=== PATIENT | female | born 1970 | race Caucasian/White ===

== ENCOUNTER 2018-06-24 12:18 | Emergency (ER) | payer BC ==
[~2018-06-24] VITALS: Ht 170.2 cm; Wt 76.2 kg
[2018-06-24 12:48] LABS: ABSOLUTE NEUTROPHILS 2.5 thou/uL (1.4-8.2); EOSINOPHILS 6.2 % (0.0-3.0); HEMATOCRIT 35.4 % (37.0-47.0); HEMOGLOBIN 12.5 gm/dL (12.0-15.0); LYMPHOCYTES 31.7 % (24.0-44.0); MCHC 35.2 g/dL (28.0-37.0); MONOCYTES 6.3 % (1.0-8.0); PLATELET COUNT 238 thou/uL (150-400); POLYS 54.8 % (36.0-66.0); RBC 4.17 mil/uL (4.20-5.00); RDW 12.7 % (10.5-14.5); WBC 4.5 thou/uL (4.0-11.0)
[2018-06-24 12:57] LABS: ANION GAP 11 mmol/L (7-16); BUN 7 mg/dL (7-18); CALCIUM 9.6 mg/dL (8.5-10.1); CHLORIDE 101 mmol/L (98-107); CO2 28 mmol/L (21-32); CREATININE 0.6 mg/dL (0.6-1.0); GLUCOSE 130 mg/dL (74-106); POTASSIUM 3.2 mmol/L (3.5-5.1); SODIUM 140 mmol/L (136-145)
[2018-06-24 13:00] LABS: APTT 26.4 Seconds (24.5-32.8)
[2018-06-24 13:05] LABS: TROPONIN-I <0.06 ng/mL (<0.06)
[2018-06-24] MEDS ORDERED: XANAX 0.5 MG0.5 MG PO (13:45)
[2018-06-24] MEDS ORDERED: CARVEDILOL12.5 MG PO (13:45)
[2018-06-24] MEDS ORDERED: NORCO 10-325 T1 EACH PO (13:46)
[2018-06-24] MEDS ORDERED: LISINOPRIL10 MG PO (13:46)
[2018-06-24] MEDS ORDERED: AMLODIPINE BESY10 MG PO (13:47)
[2018-06-24] MEDS ORDERED: LIPITOR40 MG PO (13:47)
[2018-06-24] MEDS ORDERED: IBUPROFEN 800800 M1 PO (13:49)
[2018-06-24] MEDS ORDERED: ADDERALL 10 MG10 MG PO (13:49)
[2018-06-24 15:18] VITALS: BP 179/96
--- NOTE | 2018-06-24 16:58 | EKG ---
[place] [address] [address] [facility] [place] [address] ELECTROCARDIOGRAM REPORT Name: ANGEL LUIS BRADLEY [id number] ������������������ Admission: 06/24/18 ������������������ Attend Phys: Discharge: 06/24/18 ������������������ Date of : 66 Report #: [id number] ����������������������������������������������������������������� [id number] THIS REPORT FOR: //name// [facility] ED Test Date: 2018-06-24 Test Time: 12:30:57 Pat Name: ANGEL LUIS BRADLEY Department: Room: Gender: F Vice President Tax: kf : 1970 Requested By: Barbara Vaughn Order Number: [id number] MD: Roland Quintanilla Measurements Intervals [place] Rate: 75 P: 43 [place]: 153 QRS: -7 QRSD: 99 T: 21 QT: 376 QTc: 420 Interpretive Statements Sinus rhythm Normal tracing No previous ECG available for comparison Electronically Signed On 06-24-2018 16:58:20 CDT by Roland Quintanilla [email or web address] ��������������������������������������������� <ELECTRONICALLY SIGNED> ���������������������������������������� By: Roland Quintanilla MD, [facility] ��������������������������������������������� 06/24/18 1658 1230 1230 Roland Quintanilla MD, FACC /EPI
[2018-06-27] MEDS ORDERED: BYSTOLIC20 MG PO (08:04)
[2018-06-27] MEDS ORDERED: CLONIDINE0.1 PO (08:05)
[2018-06-27] MEDS ORDERED: EDARBYCLOR 40-1 EAC1 PO (08:05)
[2018-06-27] MEDS ORDERED: HYDROCHLOROTH12.5 M1 PO (08:06)
[2018-06-27] MEDS ORDERED: PLAVIX 75 MG TA75 M1 PO (11:46)
[2018-06-27] MEDS ORDERED: ASPIR 8181 MG PO (11:47)
== END 2018-06-24 15:45 | disposition home or self-care (01) ==
LOC: ER 12:18
PROVIDERS: Emergency Medicine
DX: I10 Essential (primary) hypertension (principal); E78.00 Pure hypercholesterolemia, unspecified; Z88.2 Allergy status to sulfonamides

== ENCOUNTER → 2018-06-27 | Outpatient (CLI) | payer BC, OTHER ==
[~2018-06-27] VITALS: Ht 170.2 cm; Wt 76.2 kg
[~2018-06-27] MED LIST: ADDERALL 10 MG10 MG PO; AMLODIPINE BESY10 MG PO; ASPIR 8181 MG PO; BYSTOLIC20 MG PO; CARVEDILOL12.5 MG PO; CLONIDINE0.1 PO; EDARBYCLOR 40-1 EAC1 PO; HYDROCHLOROTH12.5 M1 PO; IBUPROFEN 800800 M1 PO; LIPITOR40 MG PO; LISINOPRIL10 MG PO; NORCO 10-325 T1 EACH PO; PLAVIX 75 MG TA75 M1 PO; XANAX 0.5 MG0.5 MG PO
[2018-06-27 07:23] VITALS: BP 159/87
[2018-06-27 12:00] VITALS: BP 135/65
== END | disposition home or self-care (01) ==
LOC: SPEC 06:34
DX: I73.89 Other specified peripheral vascular diseases (principal); I70.1 Atherosclerosis of renal artery; I77.3 Arterial fibromuscular dysplasia; I10 Essential (primary) hypertension; E78.5 Hyperlipidemia, unspecified; F41.9 Anxiety disorder, unspecified; Z90.49 Acquired absence of other specified parts of digestive tract; Z98.890 Other specified postprocedural states; Z82.49 Family history of ischemic heart disease and other diseases of the circulatory system; Z87.891 Personal history of nicotine dependence; Z88.2 Allergy status to sulfonamides; Z79.82 Long term (current) use of aspirin; Z79.899 Other long term (current) drug therapy

== ENCOUNTER 2019-09-04 10:18 | Inpatient (IN) | payer BC, OTHER ==
[~2019-09-04] VITALS: Ht 170.2 cm; Wt 74.4 kg
[2019-09-04 10:18] VITALS: BP 218/87
[2019-09-04 10:50] LABS: URINE BILIRUBIN NEGATIVE (Negative); URINE BLOOD NEGATIVE (Negative); URINE CLARITY CLEAR; URINE COLOR YELLOW; URINE GLUCOSE-RANDOM* NEGATIVE (Negative); URINE KETONES NEGATIVE (Negative); URINE LEUKOCYTES-REFLEX NEGATIVE (Negative); URINE NITRITE-REFLEX NEGATIVE (Negative); URINE PROTEIN (DIPSTICK) NEGATIVE (Negative); URINE UROBILINOGEN 0.2 E.U./dl (0.2-1.0)
[2019-09-04 10:52] LABS: ABSOLUTE NEUTROPHILS 3.5 thou/uL (1.4-8.2); EOSINOPHILS 13.1 % (0.0-3.0); HEMATOCRIT 38.5 % (37.0-47.0); HEMOGLOBIN 13.1 gm/dL (12.0-15.0); LYMPHOCYTES 23.2 % (24.0-44.0); MCH 30.1 pg (26.0-34.0); MCV 88.7 fL (80.0-100.0); PLATELET COUNT 257 thou/uL (150-400); POLYS 56.7 % (36.0-66.0); RBC 4.34 mil/uL (4.20-5.00); RDW 13.4 % (10.5-14.5); WBC 6.2 thou/uL (4.0-11.0)
[2019-09-04 11:04] LABS: CALCIUM 9.4 mg/dL (8.5-10.1); CREATININE 0.8 mg/dL (0.6-1.0); POTASSIUM 3.4 mmol/L (3.5-5.1)
[2019-09-04 11:10] LABS: ALBUMIN 4.1 g/dL (3.4-5.0); TOTAL BILIRUBIN 0.3 mg/dL (0.2-1.0); TOTAL PROTEIN 7.3 g/dL (6.4-8.2)
[2019-09-04 13:09] VITALS: BP 167/79
[2019-09-04 14:37] VITALS: BP 159/92
[2019-09-04 16:09] VITALS: BP 142/68
[2019-09-04 18:54] VITALS: BP 150/84
[2019-09-04 20:30] VITALS: BP 145/83
--- NOTE | 2019-09-04 21:13 | NUR ---
PT. ARRIVED AT FLOOR CLOSE TO 1600; AOX4; ABLE TO AMBULATE FROM STRECHER TO BED; ABLE TO AMBULATE FROM BED TO RESTHROOM; C/O ABDOMINAL PAIN; PRN PAIN MEDICATION NOT DUE; PHYSICIAN NOTIFIED; C/O NAUSEA; NO PRN MEDICATION; PHYSICIAN PAGED; ORDERS RECEIVED; C/O ITCHING AFTER GETTING MORPHINE IN ER; PHYSICIAN NOTIFIED; ORDERS RECEIVED; C/O ITCHING & HIVES DEVELOPED OVER THIGHS; PHYSICINA PAGED X2; NO CALL BACK; MICHELE DESIGN INSERTER CALLED; ORDERS RECEIVED; MEDICATION GIVEN; MONITORING; PRN PAIN MEDICATION GIVEN; PER PT. REQUEST 50 MCG FENTANYL GIVEN; RE-ASSESSMENT PT. C/O PAIN; CALMER AT BED SIDE SHIFT CHANGED; ASSESSMENT CHARGED; FOLLOWING POC; PASSED ON REPORT;
[2019-09-05] VITALS: BP 143/69
[2019-09-05 03:40] VITALS: BP 151/81
[2019-09-05 04:26] LABS: HEMATOCRIT 39.5 % (37.0-47.0); HEMOGLOBIN 13.3 gm/dL (12.0-15.0); MCH 29.9 pg (26.0-34.0); MCHC 33.6 g/dL (28.0-37.0); RBC 4.43 mil/uL (4.20-5.00); RDW 13.3 % (10.5-14.5); WBC 4.5 thou/uL (4.0-11.0)
--- NOTE | 2019-09-05 04:48 | NUR ---
SLEPT PART OF SHIFT. CONTINUED COMPLAINTS OF PAIN ON RIGHT FLANK WITH NOTED RELIEF PAST IV PAIN MEDS. WORKING ON GOALS AND PLAN OF CARE FOR NOC. NOT PROGRESSING TOWARDS DISCHARE GOALS AT THIS TIME. UP AD NEMO TO ROOM WITH STEADY GAIT. CONTINUE TO ASSES CLOSELY.
[2019-09-05 04:50] LABS: CALCIUM 9.8 mg/dL (8.5-10.1); CREATININE 0.8 mg/dL (0.6-1.0); POTASSIUM 4.2 mmol/L (3.5-5.1)
[2019-09-05 07:34] VITALS: BP 160/72
--- NOTE | 2019-09-05 10:09 | EKG ---
[facility] [place] [address] ELECTROCARDIOGRAM REPORT Name: ANGEL LUIS BRADLEY Room #: 212- ADM IN M.R.#: [id number] Admission: 09/04/19 Attend Phys: Brenton Lugo MD Discharge: Date of : 66 Report #: [id number] THIS REPORT FOR: cc: Nicolas Guerra Gregory DO Park,Dustin Weber MD ~ THIS REPORT FOR: //name// [facility] ED Test Date: 2019-09-04 Test Time: 10:38:24 Pat Name: ANGEL LUIS BRADLEY Department: Room: [facility] Gender: F Composition Floor Setter: : 1970 Requested By: Dennis Kramer Order Number: [id number] MD: Dustin Guajardo Measurements Intervals [place] Rate: 72 P: 51 MS: 139 QRS: 1 QRSD: 96 T: 14 QT: 385 QTc: 422 Interpretive Statements Sinus rhythm Probable left atrial enlargement Left ventricular hypertrophy Nonspecific ST segment abnormalities Compared to ECG 06/24/2018 12:30:57 Left ventricular hypertrophy now present Electronically Signed On 09-05-2019 10:08:53 CDT by Dustin Guajardo [email or web address] <ELECTRONICALLY SIGNED> By: Dustin Guajardo MD 09/05/19 1008 1038 1038 Dustin Guajardo MD /EPI
--- NOTE | 2019-09-05 10:28 | NUR ---
PT ASSESSED, VSS, REVIEWED POC WITH PT, SHE VERBALIZED UNDERSTANDING, AWARE OF WHEN SHE CAN HAVE NEXT PAIN MED, PT AMBULATES WITH STEADY GAIT, AWARE THAT WE ARE TRYING TO KEEP STRICT I & O, WILL USE HAT IN TOILET AND KEEP TRACK OF WHAT SHE DRINKS. CALL LIGHT AT SIDE, WILL MONITOR
[2019-09-05 11:27] VITALS: BP 136/70
--- NOTE | 2019-09-05 14:28 | 2DMMODE ---
[facility] [place] [address] 2 D/M-MODE ECHOCARDIOGRAM Name: ANGEL LUIS BRADLEY Room #: 212-P ADM IN M.R.#: [id number] Admission: 09/04/19 Attend Phys: Brenton Lugo MD Discharge: Date of : 66 Report #: [id number] THIS REPORT FOR: cc: Nicolas Guerra Gregory DO Park,Dustin Weber MD ~ APPROVED REPORT Study performed: 09/05/2019 09:47:54 EXAM: Comprehensive 2D, Doppler, and color-flow Echocardiogram Patient Location: In-Patient Room #: 212 Status: routine BSA: 1.86 HR: 76 bpm Rhythm: NSR Other Information Study Quality: Adequate Indications Hypertension/HDD 2D Dimensions RVDd: 39.60 mm IVSd: 16.30 (7-11mm) LVOT Diam: 21.32 (18-24mm) LVDd: 39.44 mm PWd: 14.06 (7-11mm) Ascending Ao: 33.46 (22-36mm) LVDs: 17.84 (25-40mm) Aortic Root: 32.27 mm LV Single Plane 4CH: 78.33 % Volumes Left Atrial Volume (Systole) Single Plane 4CH: 21.53 mL Single Plane 2CH: 25.26 mL Aortic Valve AoV Peak Ceferino.: 1.82 m/s AO Peak Gr.: 13.21 mmHg LVOT Max P.09 mmHg AO Mean Gr.: 6.32 mmHg LVOT Mean P.97 mmHg AO V2 Mean: 1.16 m/s LVOT Max V: 1.67 m/s AO V2 VTI: 44.20 cm LVOT Mean V: 1.12 m/s [facility] [address] [place] [address] 2 D/M-MODE ECHOCARDIOGRAM Name: ANGEL LUIS BRADLEY Room #: 212-P [facility] IN ..#: [id number] Admission: 09/04/19 Attend Phys: Brenton Lugo MD Discharge: Date of : 66 Report #: [id number] BRIELLE (VTI): 3.04 cm2 LVOT V1 VTI: 37.62 cm BRIELLE Vmax: 3.27 cm2 SV (LVOT): 134.29 mL Mitral Valve E/A Ratio: 1.0 MV Decel. Time: 293.25 ms MV E Max Ceferino.: 0.95 m/s MV A Ceferino.: 0.96 m/s MV PHT: 85.04 ms Pulmonary Valve PV Peak Ceferino.: 1.01 m/s PV Peak Gr.: 4.06 mmHg Pulmonary Vein P Vein S: 0.86 m/s P Vein A: 0.43 m/s P Vein D: 0.41 m/s P Vein A Dur.: 145.3 msec P Vein S/D Ratio: 2.10 Tricuspid Valve TR Peak Ceferino.: 2.62 m/s TR Peak Gr.: 27.45 mmHg Left Ventricle The left ventricle is normal size. Mild concentric left ventricular hypertrophy. The left ventricular systolic function is normal. The left ventricular ejection fraction is within the normal range. LVEF is 65%. Right Ventricle The right ventricle is normal size. The right ventricular systolic function is normal. Atria The left atrium size is normal. The right atrium size is normal. Aortic Valve The aortic valve is normal in structure. No aortic regurgitation is present. There is no aortic valvular stenosis. Mitral Valve The mitral valve is normal in structure. Trace to mild mitral regurgitation. No evidence of mitral valve stenosis. Tricuspid Valve [facility] [address] [place] [address] 2 D/M-MODE ECHOCARDIOGRAM Name: ANGEL LUIS BRADLEY Room #: 212-P [facility] IN .R.#: [id number] Admission: 09/04/19 Attend Phys: Brenton Lugo MD Discharge: Date of : 66 Report #: [id number] The tricuspid valve is normal in structure. There is no tricuspid valve regurgitation noted. Pulmonic Valve The pulmonary valve is normal in structure. There is no pulmonic valvular regurgitation. Great Vessels The aortic root is normal in size. IVC is normal in size and collapses >50% with inspiration. Pericardium There is no pericardial effusion. <Conclusion> The left ventricle is normal size. Mild concentric left ventricular hypertrophy. The left ventricular systolic function is normal. The right ventricle is normal size. The left atrium size is normal. The aortic valve is normal in structure. Trace to mild mitral regurgitation. There is no tricuspid valve regurgitation noted. <ELECTRONICALLY SIGNED> By: Dustin Guajardo MD 09/05/19 1427 1427 1427 Dustin Guajardo MD /INF
[2019-09-05 15:17] VITALS: BP 145/73
--- NOTE | 2019-09-05 17:46 | NUR ---
CARE TAKEN OVER FROM CHAO RN @ 1300. PT ALERT AND ORIENTED. RECEIVED PRN PAIN MED FOR ABD PAIN. REPORT HAVING NAUSEA X3. NAUSEA MED GIVEN. SR ON TELE. WILL CONTINUE TO MONITOR.
[2019-09-05 19:13] VITALS: BP 162/79
[2019-09-06] VITALS: BP 121/64
--- NOTE | 2019-09-06 04:22 | NUR ---
SLEPT MOST OF SHIFT. UP AD NEMO IN ROOM WITH STEADY GAIT. PAIN MEDICATIONS GIVEN REQUESTED PRN FOR RIGHT FLANK PAIN WITH NOTED RELIEF. PAIN MORE CONTROLLED TONIGHT. WORKING ON GOALS AND PLAN OF CARE FOR NOC. NOT PROGRESSING TOWARDS DISCHARGE GOALS AT THIS TIME. PLAN FOR COLONOSCOPY ON SATURDAY. CONTINUE TO ASSES.
--- NOTE | 2019-09-06 04:25 | NUR ---
RASH REMAINS VISIBLE TONIGHT ON BACK, BETWEEN LEGS, ABDOMAN AND ARMS. IS LESS RED THAT PREVIOUS NOC. BENADRYL GIVEN X1 THIS SHIFT.
[2019-09-06 04:30] VITALS: BP 128/66
[2019-09-06 12:00] VITALS: BP 158/86
--- NOTE | 2019-09-06 16:42 | NUR ---
PT ALERT AND ORIENTED. VSS. PRN PAIN MED AND NAUSEA MED GIVEN. NPO FOR EGD AND COLONOSCOPY IN AM. COLONOSCOPY PREP STARTED. WILL CONTINUE TO MONITOR.
[2019-09-06 17:00] VITALS: BP 146/89
[2019-09-06 19:50] VITALS: BP 162/83
[2019-09-06 23:28] VITALS: BP 111/67
[2019-09-07 03:55] VITALS: BP 146/90
[2019-09-07 04:49] LABS: HEMATOCRIT 39.7 % (37.0-47.0); HEMOGLOBIN 13.3 gm/dL (12.0-15.0); MCH 29.9 pg (26.0-34.0); MCHC 33.5 g/dL (28.0-37.0); MCV 89.2 fL (80.0-100.0); RBC 4.45 mil/uL (4.20-5.00); RDW 13.1 % (10.5-14.5); WBC 5.8 thou/uL (4.0-11.0)
[2019-09-07 05:01] LABS: CALCIUM 9.2 mg/dL (8.5-10.1); CREATININE 0.8 mg/dL (0.6-1.0)
--- NOTE | 2019-09-07 05:16 | NUR ---
SLEPT MORE THIS SHIFT THAN LAST NOC. WORKING ON GOALS AND PLAN OF CARE FOR NOC. LAST STOOL AT 0200 WAS LIGHT YELLOW AND CLEAR. NOT PROGRESSING TOWARDS DISCHARGE GOALS AT THIS TIME. UP AD NEMO WITH STEADY GAIT. CONTINUE TO ASSES CLOSELY.
[2019-09-07 08:00] VITALS: BP 134/82
[2019-09-07 14:00] VITALS: BP 140/76
[2019-09-07] MEDS ORDERED: CHLORTHALIDONE25 MG PO (14:47)
[2019-09-07] MEDS ORDERED: BENICAR20 MG PO (14:47)
[2019-09-07] MEDS ORDERED: PANTOPRAZOLE SO40 M1 PO (14:47)
[2019-09-07 14:56] VITALS: BP 140/76
--- NOTE | 2019-09-07 15:16 | NUR ---
Nutrition: Pt admitted with abdominal pain, elevated BP and seen due to high risk screen for weight loss, poor intake. Unable to locate pt x 2 today. Noted discharge orders in place. S/P EGD/colonoscopy this am with dilation, grade B esophagitis, gastritis and mild duodenitis noted. Protonix started. Pt now on regular diet with prior intake 35-75% of meals. Current weights showing a 4 # loss from weight last year if accurate, not significant. RD will attempt re-visit with pt on 09/07 if not discharged.
--- NOTE | 2019-09-07 16:43 | NUR ---
ASSESSMENT CHARTED. PT ALERT AND ORIENTED. VSS. HAD EGD AND COLONOSCOPY THIS AM. PRN PAIN MED GIVEN WITH PARTIAL RELIEF. ORDERS GIVEN TO DISCHARGE PT TO HOME. DISCHARGE INSTRUCTIONS GIVEN TO PT. PT VERBERLISED UNDERSTANDING.
--- NOTE | 2019-09-09 07:09 | PATH ---
[facility] [place] [address] PATHOLOGY RPT PROCEDURE Name: AMA BRADLEY Room #: 212-P DIS IN M.R.#: [id number] Admission: 09/04/19 Date of : 66 Discharge: 09/07/19 Report #: [id number] Path Case #: [id number] [facility] Accession Number: [id number] . 01 Material submitted: . PART A: duodenum - BX OF DUODENUM PART B: stomach - BX OF GASTRITIS PART C: esophagus - BX OF ESOPHAGUS PART D: cecum - POLYP AT CECUM . 01 Clinical history: . Hypertension, flank pain, renal artery stenosis . 02 Diagnosis: A. Small bowel mucosa, duodenum, endoscopic biopsy: - Mild nonspecific duodenitis associated with focal fundic-type metaplasia, compatible with peptic duodenitis. - Focal mild villous blunting identified in association with peptic duodenitis. - Negative for increase in intraepithelial lymphocytes. . B. Gastric mucosa, gastritis R/O H. pylori, endoscopic biopsy: - Mild chronic active gastritis associated with features of reactive gastropathy. - Negative for intestinal metaplasia or atrophy. - Negative for Helicobacter pylori (properly controlled immunohistochemical stain performed). . C. Gastroesophageal mucosa, esphagus R/O Quan's, endoscopic biopsy: - Gastric fundic-type mucosa with no definite intestinal metaplasia. - Squamous mucosa with mild esophagitis. - Negative for dysplasia. . D Polyp, cecum, endoscopic biopsy: - Tubular adenoma. - Negative for high-grade dysplasia. (IUV:karan; 09/08/2019) S 09/08/2019 1514 Local . 02 Electronically signed: . Wen Tolbert MD, Pathologist NPI- [id number] . 01 Gross description: . A. The specimen is received in formalin labeled "Ama Bradley BX of duodenum rule out sprue" and consists of multiple fragments of babcock tissue measuring 1.2 x 0.6 x 0.2 cm [place] [address] PATHOLOGY RPT PROCEDURE Name: AMA BRADLEY Room #: 212-P [facility] IN .R.#: [id number] Admission: 09/04/19 Date of : 66 Discharge: 09/07/19 Report #: [id number] Path Case #: [id number] submitted in A1. . B. The specimen is received in formalin labeled "Daron, Ama, BX of gastritis rule out H. pylori" and consists of multiple fragments of pink-babcock tissue measuring 0.8 x 0.3 x 0.2 cm in aggregate which are entirely submitted in B1. . C. The specimen is received in formalin labeled "Ama Bradley, BX of esophagus rule out Quan's" and consists of a fragment of babcock brown tissue measuring 0.3 x 0.2 x 0.2 cm which is entirely submitted in C1. . D. The specimen is received in formalin labeled "Ama Bradley, polyp at cecum" and consists of 2 fragments of babcock tissue measuring 0.6 x 0.2 x 0.2 cm in aggregate which are entirely submitted in D1. (DESIRE; 09/07/2019) JFQ/ZACARIAS 09/07/2019 1907 Local . 02 Pathologist provided ICD-10: K29.80, K29.50, K20.9, D12.0 . 02 CPT . 297682, 255074, 781390, 721172, B91241 Specimen Comment: A courtesy copy of this report has been sent to [phone], [phone] Specimen Comment: [phone], Specimen Comment: Report sent to ,DR COLES / DR SONG Specimen Comment: Report sent to Performed at: [address], [place], [place] [id number] MD Melecio Phan MD Phone: [phone] Performed at: [address] [id number] MD Wen Tolbert MD Phone: [phone]
--- NOTE | 2019-09-09 15:06 | P ---
[facility] [place] [address] PROCEDURE REPORT Name: ANGEL LUIS BRADLEY Room #: 212-P [facility] IN M.R.#: [id number] Admission: 09/04/19 Attend Phys: Brenton Lugo MD Discharge: 09/07/19 Date of : 66 Report #: [id number] THIS REPORT FOR: cc: Nicolas Guerra Gregory DO McElhinney, Christian C. MD ~ CC: Brenton Guerra DATE OF SERVICE: 09/07/2019 PROCEDURE PERFORMED: Colonoscopy with biopsies. HISTORY OF PRESENT ILLNESS: The patient is a 49-year-old female with abdominal pain, small amount of bright red blood per rectum recently. A CT scan of the abdomen and pelvis on 09/04/2019 showed fatty liver changes, mild bile duct dilation, history of cholecystectomy noted. No obvious stones were seen. Thickened endometrial canal was noted. 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 The patient has a previous history of left renal stent placement. She therefore underwent a CT arteriogram on 09/05/2019. Celiac SMA and FRANSISCA were widely patent. The patient does report mild dysphagia and heartburn at times, also episode of nausea, vomiting with some bright red blood recently. No previous history of upper endoscopy. She states she had a colonoscopy in the last year. No family history of colon cancer. The plan was for EGD and colonoscopy today. DESCRIPTION OF PROCEDURE: The risks and benefits of the procedure were explained to the patient, those risks including but not limited to bleeding, perforation and the risk of sedation. She understood these risks and gave informed consent. Sedation was given using propofol per anesthesia. Next, a digital rectal exam was initially performed, which was normal. Next, using a standard Olympus colonoscope, the scope was placed in the patient's anus and advanced under direct vision to the cecum. The overall prep was good. In the cecum, there was a 3 mm sessile polyp. This was removed with cold forceps, otherwise normal. The ileocecal valve was normal. The terminal ileum was intubated and normal in appearance. Ascending, transverse and descending colon were normal. Multiple small diverticuli were noted in the sigmoid colon, no evidence of inflammation, no evidence of bleeding. The rectal mucosa was normal. On retroflexion, small nonbleeding internal hemorrhoids were noted. The scope was then withdrawn and the procedure terminated. The patient tolerated the procedure well. IMPRESSION: 1. Small colonic polyp. 2. Sigmoid diverticulosis, no signs of bleeding. [address] [address] PROCEDURE REPORT Name: ANGEL LUIS BRADLEY Room #: 212-P [facility] IN M.R.#: [id number] Admission: 09/04/19 Attend Phys: Brenton Lugo MD Discharge: 09/07/19 Date of : 66 Report #: [id number] 3. Small internal hemorrhoids, nonbleeding. 4. Otherwise, normal colonoscopy. RECOMMENDATIONS: 1. Await biopsy results. 2. If polyp is hyperplastic, repeat in 10 years; if adenomatous polyp, repeat in 5 years. 3. Etiology of abdominal pain may be secondary to gastritis and esophagitis. The patient is now on PPI therapy. Would continue to observe. She did, however, have a mild elevation in her lipase. We will repeat at this time. Pancreas was normal on recent CT. Thank you for allowing me to participate in her care. <ELECTRONICALLY SIGNED> By: Raheel Sung MD 09/09/19 1506 1257 1404 Raheel Sung MD /nt
--- NOTE | 2019-09-09 15:06 | P ---
[facility] [place] [address] PROCEDURE REPORT Name: ANGEL LUIS BRADLEY Room #: 212-P [facility] IN M.R.#: [id number] Admission: 09/04/19 Attend Phys: Brenton Lugo MD Discharge: 09/07/19 Date of : 66 Report #: [id number] THIS REPORT FOR: cc: Nicolas Guerra,Raheel Su MD ~ CC: Brenton Guerra DATE OF SERVICE: 09/07/2019 PROCEDURE PERFORMED: Upper endoscopy with biopsies and esophageal dilation. HISTORY OF PRESENT ILLNESS: The patient is a 49-year-old female who was admitted with abdominal pain. This is primarily midepigastric and periumbilical. She describes it as constant. She does report mild heartburn at times intermittent nausea and vomiting, one episode with a small amount of bright red blood recently. Also, is having hematochezia. She has had a previous history of a left renal stent. A CT scan of the abdomen and pelvis was performed, suggesting a possible stenosis of the mesentery. Therefore, she underwent a CT arteriogram. This showed celiac and SMA and FRANSISCA widely patent. Plan is for EGD and colonoscopy today. She does report mild dysphagia at times. DESCRIPTION OF PROCEDURE: The risks and benefits of the procedure were explained to the patient, those risks including but not limited to bleeding, perforation and the risk of sedation. She understood these risks and gave informed consent. Sedation was given using propofol per anesthesia. Next, using a standard Olympus upper endoscope, the scope was placed in the patient's mouth and advanced under direct vision through the esophagus, stomach and into the second portion of the duodenum. The upper and mid esophagus was normal in appearance. In the distal esophagus, grade B erosive esophagitis was noted. A possible short segment of Quan's was also noted. Biopsies were obtained. Overall, there was a mild diffuse gastritis primarily in the antrum. No evidence of ulcerations or erosions, no bleeding. Biopsies were obtained to rule out H. pylori. The pylorus was normal and patent. Mild duodenitis was noted in the duodenal bulb. The first and second portion of the duodenum were normal. Biopsies were obtained to rule out the possibility of celiac sprue. The scope was then brought back up into the patient's stomach and a Savary guidewire was inserted through the scope, leaving the guidewire in place as the scope was then withdrawn. Next, a 48-Senegalese Savary dilation of the esophagus was performed without difficulty. The wire and dilator were removed. The scope was reintroduced into the patient's stomach. There was no evidence of mucosal tear after dilation. The scope was then withdrawn and the procedure terminated. The patient tolerated the procedure well. [address] [address] PROCEDURE REPORT Name: ANGEL LUIS BRADLEY Room #: 212-P [facility] IN M.R.#: [id number] Admission: 09/04/19 Attend Phys: Brenton Lugo MD Discharge: 09/07/19 Date of : 66 Report #: [id number] IMPRESSION: 1. Grade B erosive esophagitis. 2. Mild gastritis. 3. Mild duodenitis. 4. Otherwise, normal upper endoscopy. RECOMMENDATIONS: 1. Await biopsy results. 2. Recommend daily PPI therapy. 3. Observe patient post-dilation. 4. We will proceed with colonoscopy next today. Thank you for allowing me to participate in her care. <ELECTRONICALLY SIGNED> By: Raheel Sung MD 09/09/19 1506 1224 1348 Raheel Sung MD /nt
== END 2019-09-07 17:02 | disposition home or self-care (01) | DRG 394 ==
LOC: ER 10:18 → 2N 13:03 → EROBS 13:03 → 2N 13:04 → EROBS 14:52 → 2N 14:52
PROVIDERS: Emergency Medicine; ADMIT Hospitalist; ATTEND Hospitalist
DX: D12.0 Benign neoplasm of cecum (principal); K55.1 Chronic vascular disorders of intestine; K29.70 Gastritis, unspecified, without bleeding; K29.80 Duodenitis without bleeding; I16.0 Hypertensive urgency; I10 Essential (primary) hypertension; E78.5 Hyperlipidemia, unspecified; K64.8 Other hemorrhoids; I73.9 Peripheral vascular disease, unspecified; K76.0 Fatty (change of) liver, not elsewhere classified; R13.10 Dysphagia, unspecified; K21.0 Gastro-esophageal reflux disease with esophagitis; K57.30 Diverticulosis of large intestine without perforation or abscess without bleeding; Z98.1 Arthrodesis status; Z79.891 Long term (current) use of opiate analgesic; I25.2 Old myocardial infarction; Z90.49 Acquired absence of other specified parts of digestive tract; Z90.89 Acquired absence of other organs; Z79.82 Long term (current) use of aspirin; Z79.899 Other long term (current) drug therapy; Z88.2 Allergy status to sulfonamides; Z87.891 Personal history of nicotine dependence; Z88.5 Allergy status to narcotic agent
CPT/HCPCS: 10081; 10797; 62110; 62900; 70005

== ENCOUNTER → 2019-09-22 | Outpatient (CLI) | payer BC, OTHER ==
[~2019-09-22] MED LIST changes: +BENICAR20 MG PO; +CHLORTHALIDONE25 MG PO; +PANTOPRAZOLE SO40 M1 PO
== END ==
LOC: SJCVCIMAG 15:07
PROVIDERS: ATTEND Internal Medicine Cardiovascular Disease
DX: K55.1 Chronic vascular disorders of intestine (principal); I10 Essential (primary) hypertension; E78.00 Pure hypercholesterolemia, unspecified; I70.1 Atherosclerosis of renal artery; R10.84 Generalized abdominal pain

== ENCOUNTER 2019-10-05 11:27 | Outpatient (CLI) | payer BC, OTHER ==
[2019-10-05] VITALS (7 sets, daily range): BP systolic 96–126; BP diastolic 59–76
[~2019-10-05] VITALS: Ht 170.2 cm; Wt 70.3 kg
[2019-10-05 12:20] LABS: HEMATOCRIT 39.7 % (37.0-47.0); HEMOGLOBIN 13.5 gm/dL (12.0-15.0); MCHC 34.2 g/dL (28.0-37.0); MCV 87.9 fL (80.0-100.0); RBC 4.51 mil/uL (4.20-5.00); RDW 12.6 % (10.5-14.5)
[2019-10-05 12:31] LABS: CALCIUM 9.8 mg/dL (8.5-10.1); CREATININE 0.7 mg/dL (0.6-1.0); POTASSIUM 3.3 mmol/L (3.5-5.1)
--- NOTE | 2019-10-05 19:03 | NUR ---
PT ADMITED FROM ACADEMIC ADMINISTRATOR. RIGHT GROIN INCISION C/D/I. VSS. PRN PAIN MED GIVEN WITH PARTIAL RELIEF. ORDERS GIVEN TO DISCHARGE PT AFTER BED REST. DISCHARGE INSTRUCTIONS GIVEN TO PT. PT VERBERLISED UNDERSTANDING. PT LEFT THE FACILTY WITH THE . RIGHT GROIN C/D/I. NO HEMATOMA NOTED.
== END 2019-10-05 19:15 | disposition home or self-care (01) ==
LOC: CATH 11:27 → 2N 16:00 → CATH 19:15
PROVIDERS: ATTEND Nuclear Medicine Nuclear Cardiology
DX: K55.1 Chronic vascular disorders of intestine (principal); K55.059 Acute (reversible) ischemia of intestine, part and extent unspecified; I70.1 Atherosclerosis of renal artery; I73.9 Peripheral vascular disease, unspecified; I10 Essential (primary) hypertension; E78.5 Hyperlipidemia, unspecified; I48.91 Unspecified atrial fibrillation; Z90.49 Acquired absence of other specified parts of digestive tract; Z98.890 Other specified postprocedural states; Z79.891 Long term (current) use of opiate analgesic; Z79.899 Other long term (current) drug therapy; Z88.2 Allergy status to sulfonamides; Z88.8 Allergy status to other drugs, medicaments and biological substances
CPT/HCPCS: 10081

== ENCOUNTER → 2019-10-08 | Outpatient (CLI) | payer BC, OTHER | LOC: SJCVCIMAG 14:57 | PROVIDERS: ATTEND Nuclear Medicine Nuclear Cardiology | DX: R10.30 Lower abdominal pain, unspecified (principal); R19.09 Other intra-abdominal and pelvic swelling, mass and lump ==

== ENCOUNTER 2020-01-13 19:45 | Emergency (ER) | payer BC, OTHER ==
[~2020-01-13] VITALS: Ht 170.2 cm; Wt 72.6 kg
--- NOTE | ~2020-01-13 | EKG ---
[facility] [place] [address] ELECTROCARDIOGRAM REPORT Name: ANGEL LUIS BRADLEY Room #: PRE [facility]..#: [id number] Admission: Attend Phys: Discharge: Date of : 66 Report #: [id number] THIS REPORT FOR: cc: Nicolas Guerra Gregory DO Epiphany, Epiphany MD ~ THIS REPORT FOR: //name// [facility] ED Test Date: 2020-01-13 Test Time: 19:53:15 Pat Name: ANGEL LUIS BRADLEY Department: Room: Gender: F Clay Carman: GISSELL : 1970 Requested By: Thanh Porter Order Number: [id number] MD: Measurements Intervals [place] Rate: 84 P: 56 TN: 172 QRS: 26 QRSD: 101 T: 38 QT: 381 QTc: 451 Interpretive Statements Sinus rhythm Probable left atrial enlargement Minimal ST depression, anterolateral leads Baseline wander in lead(s) III,V1,V2,V3,V4,V5,V6 Compared to ECG 09/04/2019 10:38:24 ST (T wave) deviation now present Left ventricular hypertrophy no longer present [email or web address] By: 52 52 Epiphany Epiphany, [place] /EPI
[2020-01-13 20:13] LABS: ABSOLUTE NEUTROPHILS 4.6 thou/uL (1.4-8.2); BASOPHILS 0.6 % (0.0-2.0); HEMATOCRIT 35.4 % (37.0-47.0); MCH 30.2 pg (26.0-34.0); MCV 88.8 fL (80.0-100.0); MONOCYTES 1.9 % (1.0-8.0); PLATELET COUNT 325 thou/uL (150-400); POLYS 87.5 % (36.0-66.0); RBC 3.98 mil/uL (4.20-5.00); RDW 12.9 % (10.5-14.5); WBC 5.3 thou/uL (4.0-11.0)
[2020-01-13 20:18] LABS: ANION GAP 15 mmol/L (7-16); BUN 9 mg/dL (7-18); CALCIUM 9.9 mg/dL (8.5-10.1); CHLORIDE 98 mmol/L (98-107); CO2 24 mmol/L (21-32); CREATININE 0.7 mg/dL (0.6-1.0); GLUCOSE 157 mg/dL (74-106); POTASSIUM 3.4 mmol/L (3.5-5.1); SODIUM 137 mmol/L (136-145)
[2020-01-13 20:28] LABS: ALBUMIN 4.3 g/dL (3.4-5.0); SGOT 13 U/L (15-37); SGPT 25 U/L (30-65); TOTAL BILIRUBIN 0.1 mg/dL (0.2-1.0); TOTAL PROTEIN 7.9 g/dL (6.4-8.2); TROPONIN-I <0.06 ng/mL (<0.06)
[2020-01-13 21:33] VITALS: BP 159/94
[2020-01-13 21:36] LABS: URINE BILIRUBIN NEGATIVE (Negative); URINE BLOOD 1+ (Negative); URINE CLARITY CLEAR; URINE COLOR YELLOW; URINE GLUCOSE-RANDOM* NEGATIVE (Negative); URINE KETONES NEGATIVE (Negative); URINE NITRITE-REFLEX NEGATIVE (Negative); URINE PROTEIN (DIPSTICK) NEGATIVE (Negative); URINE SPECIFIC GRAVITY 1.025 (1.005-1.035); URINE UROBILINOGEN 0.2 E.U./dl (0.2-1.0)
[2020-01-13 21:45] LABS: URINE LEUKOCYTES-REFLEX 1+ (Negative)
[2020-01-13 22:22] LABS: SQUAMOUS 0-3 Few /LPF (0-3)
[2020-01-13 22:23] LABS: BACTERIA-REFLEX 1-9 Few /HPF (None Seen); CASTS None Seen /LPF (None Seen); CRYSTALS None Seen /LPF (None Seen); URINE RBC 0-2 Rare /HPF (0-2); URINE WBC-REFLEX 6-15 Few /HPF (0-5)
[2020-01-13] MEDS ORDERED: ZPAK PO (22:44)
--- NOTE | 2020-01-14 07:55 | EKG ---
[facility] [place] [address] ELECTROCARDIOGRAM REPORT Name: ANGEL LUIS BRADLEY Room #: DEP [facility]#: [id number] Admission: 01/13/20 Attend Phys: Discharge: 01/13/20 Date of : 66 Report #: [id number] THIS REPORT FOR: cc: Nicolas Guerra,Giuliano Haney MD [facility] ~ THIS REPORT FOR: //name// [facility] ED Test Date: 2020-01-13 Test Time: 19:53:15 Pat Name: ANGEL LUIS BRADLEY Department: Room: Gender: F Golf Ball Winder: GISSELL : 1970 Requested By: Thanh Porter Order Number: [id number] MD: Giuliano Fuller Measurements Intervals [place] Rate: 84 P: 56 [place]: 172 QRS: 26 QRSD: 101 T: 38 QT: 381 QTc: 451 Interpretive Statements Sinus rhythm Probable left atrial enlargement Minimal ST depression, anterolateral leads Baseline wander in lead(s) III,V1,V2,V3,V4,V5,V6 Compared to ECG 09/04/2019 10:38:24 ST (T wave) deviation now present Left ventricular hypertrophy no longer present Electronically Signed On 01-14-2020 7:55:17 CDT by Giuliano Fuller [email or web address] <ELECTRONICALLY SIGNED> By: Giuliano Fuller MD, FACC 01/14/20 0755 52 52 Giuliano Fuller MD, FAC /EPI
--- NOTE | 2020-01-14 08:05 | EKG ---
[facility] [place] [address] ELECTROCARDIOGRAM REPORT Name: ANGEL LUIS BRADLEY Room #: DEP [facility]#: [id number] Admission: 01/13/20 Attend Phys: Discharge: 01/13/20 Date of : 66 Report #: [id number] THIS REPORT FOR: cc: Nicolas Guerra Gregory DO Lundgren,Roland Garrison MD [facility] THIS REPORT FOR: //name// [facility] ED Test Date: 2020-01-13 Test Time: 22:04:20 Pat Name: ANGEL LUIS BRADLEY Department: Room: Gender: Caul Fat Puller: : 1970 Requested By: Thanh Porter Order Number: [id number] MD: Roland Quintanilla Measurements Intervals [place] Rate: 76 P: 54 [place]: 181 QRS: 25 QRSD: 98 T: 34 QT: 396 QTc: 446 Interpretive Statements Sinus rhythm No significant abnormality Compared to ECG 01/13/2020 19:53:15 ST (T wave) deviation no longer present Electronically Signed On 01-14-2020 8:05:16 CDT by Roland Quintanilla [email or web address] <ELECTRONICALLY SIGNED> By: Roland Quintanilla MD, FACC 01/14/20 0805 03 03 Roland Quintanilla MD, [facility] /EPI
== END 2020-01-13 23:31 | disposition home or self-care (01) ==
LOC: ER 19:45
PROVIDERS: Emergency Medicine
DX: R50.9 Fever, unspecified (principal); R06.02 Shortness of breath; I10 Essential (primary) hypertension; E78.5 Hyperlipidemia, unspecified; Z90.710 Acquired absence of both cervix and uterus; Z79.82 Long term (current) use of aspirin; Z79.01 Long term (current) use of anticoagulants; Z79.899 Other long term (current) drug therapy; Z88.5 Allergy status to narcotic agent; Z88.2 Allergy status to sulfonamides; Z87.891 Personal history of nicotine dependence; Z20.828 Contact with and (suspected) exposure to other viral communicable diseases

== ENCOUNTER → 2020-02-16 | Outpatient (CLI) | payer BC, OTHER ==
[~2020-02-16] MED LIST changes: +ZPAK PO
== END ==
LOC: SJCVCIMAG 08:40
PROVIDERS: ATTEND Nuclear Medicine Nuclear Cardiology
DX: K55.1 Chronic vascular disorders of intestine (principal); Z95.828 Presence of other vascular implants and grafts

== ENCOUNTER → 2020-09-13 | Outpatient (CLI) | payer BC, OTHER | LOC: SJCVCIMAG 10:02 | PROVIDERS: ATTEND Internal Medicine Cardiovascular Disease | DX: I65.23 Occlusion and stenosis of bilateral carotid arteries (principal); E04.1 Nontoxic single thyroid nodule; I10 Essential (primary) hypertension; K55.1 Chronic vascular disorders of intestine; I70.1 Atherosclerosis of renal artery; R09.89 Other specified symptoms and signs involving the circulatory and respiratory systems; E78.2 Mixed hyperlipidemia; Z79.82 Long term (current) use of aspirin; Z79.899 Other long term (current) drug therapy; Z87.891 Personal history of nicotine dependence ==

== ENCOUNTER 2021-05-15 11:57 | Inpatient (IN) | payer BC, OTHER ==
[~2021-05-15] VITALS: Ht 170.2 cm; Wt 77.6 kg
[2021-05-15 11:58] VITALS: BP 173/95
[2021-05-15 12:23] LABS: CALCIUM 9.2 mg/dL (8.5-10.1); CREATININE 0.6 mg/dL (0.6-1.0); POTASSIUM 3.3 mmol/L (3.5-5.1)
[2021-05-15 12:24] LABS: ABSOLUTE NEUTROPHILS 2.5 thou/uL (1.4-8.2); BASOPHILS 0.6 % (0.0-2.0); EOSINOPHILS 0.7 % (0.0-3.0); HEMATOCRIT 35.8 % (37.0-47.0); HEMOGLOBIN 12.2 gm/dL (12.0-15.0); MCH 30.2 pg (26.0-34.0); MCHC 34.1 g/dL (28.0-37.0); MCV 88.6 fL (80.0-100.0); MONOCYTES 9.4 % (1.0-8.0); PLATELET COUNT 279 thou/uL (150-400); POLYS 56.3 % (36.0-66.0); RBC 4.04 mil/uL (4.20-5.00); RDW 13.4 % (10.5-14.5); WBC 4.5 thou/uL (4.0-11.0)
[2021-05-15 12:34] LABS: ALBUMIN 3.7 g/dL (3.4-5.0); TOTAL BILIRUBIN 0.2 mg/dL (0.2-1.0); TOTAL PROTEIN 6.9 g/dL (6.4-8.2)
[2021-05-15 14:01] LABS: CHOLESTEROL 246 mg/dL (<200); HDL CHOLESTEROL 78 mg/dL (>40); LDL CHOLESTEROL 135 mg/dL (<100); SERUM ASSESSMENT Clear; TC:HDL 3.2 Ratio (Not establshd); TRIGLYCERIDE 167 mg/dL (<150); VLDL 33 mg/dL (<40)
--- NOTE | 2021-05-15 16:04 | EKG ---
[address] [address] ELECTROCARDIOGRAM REPORT Name: ANGEL LUIS BRADLEY Room #: 170-5 ADM IN M.R.#: [id number] Admission: 05/15/21 Attend Phys: Atul Walker MD Discharge: Date of : 66 Report #: [id number] [facility] ED Test Date: 2021-05-15 Test Time: 12:01:31 Pat Name: ANGEL LUIS BRADLEY Department: Room: 170 Gender: F Civil Design Specialist: DEISI : 1970 Requested By: Barbara Vaughn Order Number: [id number] MD: Giuliano Fuller Measurements Intervals [place] Rate: 85 P: 16 VT: 164 QRS: 11 QRSD: 96 T: 29 QT: 369 QTc: 439 Interpretive Statements Sinus rhythm Baseline wander in lead(s) V5,V6 Compared to ECG 01/13/2020 22:04:20 No significant changes Electronically Signed On 05-15-2021 16:03:56 ELECTRON BEAM OPERATOR by Giuliano Fuller [email or web address] <ELECTRONICALLY SIGNED> By: Giuliano Fuller MD, [facility] 05/15/21 1603 1201 1201 Giuliano Fuller MD, FAC /EPI
[2021-05-15 19:55] VITALS: BP 159/97
[2021-05-15 20:41] VITALS: BP 164/90
[2021-05-15] MEDS ORDERED: BENICAR40 MG PO (22:31)
[2021-05-16] VITALS (7 sets, daily range): BP systolic 118–155; BP diastolic 79–97
[2021-05-16 03:31] LABS: HEMATOCRIT 31.6 % (37.0-47.0); HEMOGLOBIN 11.1 gm/dL (12.0-15.0); MCH 31.2 pg (26.0-34.0); MCHC 35.1 g/dL (28.0-37.0); RBC 3.55 mil/uL (4.20-5.00); RDW 13.7 % (10.5-14.5)
[2021-05-16 03:38] LABS: CREATININE 0.5 mg/dL (0.6-1.0); POTASSIUM 3.1 mmol/L (3.5-5.1)
--- NOTE | 2021-05-16 04:10 | NUR ---
PT ARRIVED FROM ER VIA CART, PLACED IN ROOM 359. ADMISSION ASSESSMENTS COMPLETED. PT REPORTING ABDOMINAL PAIN, NECK AND BACK PAIN. SHE STATES NECK AND BACK PAIN ARE AT GOAL AND THE ACTIVE SOURCE OF PAIN IS IN HER ABDOMEN. NOTED PLAN FOR IR AND CARDIOLOGY TO PERFORM PROCEDURES TOMMOROW. PT STATES SHE IS AWARE AND HAS SEEN BOTH PHYSICIANS IN THE PAST. SHE STATES ANGEL SHE LEFT [facility] BECAUSE SHE WANTED THE PROCEDURES DONE HERE INSTEAD. PT DENYING LASTING RELIEF FROM FENTANYL DOSING. ORDERS OBTAINED FOR CHANGE TO DILAUDID PT STATED SHE BELIEVED THE DOSE IN ER WAS MORE EFFECTIVE AT PROVIDING RELIEF. DOSE GIVEN PER ORDERS, SEE MAR.
--- NOTE | 2021-05-16 16:58 | NUR ---
Chart reviewed and case discussed with the care team. Pt admitted with mesenteric ischemia and tested covid + upon admission. She is in enhanced ISO. Her spouse is her primary contact and her pcp is Dr. Nicolas serna. She is up ad kendrick in her room and on room air. She has had one dose of the moderna vaccine. CTA and Cath anticipated today per cardiology Dr. Cordova and Dr. Taylor. No cm interventions indicated at this time. Case discussed in team rounds. CM to follow along should dc needs arise.
--- NOTE | 2021-05-16 18:24 | NUR ---
PATIENT WENT TO IR AT 1500 AND BACK TO ROOM AT 1740. RIGHT GRONE ACCESS NO BLEEDING, NO HEMOTOMA. VSS, PATIENT STILL HAS ABD PAIN, NO CHEST PAIN. BED REST TILL 2014. WILL KEEP MONITOR.
[2021-05-17 02:05] VITALS: BP 136/74
--- NOTE | 2021-05-17 03:08 | NUR ---
PT MAKING PROGRESS TOWARDS GOALS. PT RATING ABD PAIN 8-9/10 UPON DOSING BUT WILL STATE THAT PAIN REACHES GOAL AFTER DOSING WITH DILAUDID. DENIED ANY NAUSEA. RIGHT GROIN SITE C/D/I W/O HEMATOMA. HAS DENIEFD ANY RIGHT FLANK/HIP PAIN OVERNIGHT. DID STATE SHE FELT SOME BL LOWER BACK PAIN THAT WOULD RADIATE UPWARDS TO THE LOWER RIBS. SHE STATES THIS PAIN WAS PRESENT WHILE SHE WAS STILL WAITING IN THE EMERGENCY ROOM. "IT MIGHT JUST BE FROM LAYING IN BED FOR SO LONG." NOTED HX OF BACK AND NECK PAIN.
[2021-05-17 03:16] VITALS: BP 135/60
[2021-05-17 04:46] LABS: HEMATOCRIT 30.5 % (37.0-47.0); HEMOGLOBIN 10.6 gm/dL (12.0-15.0); MCH 31.1 pg (26.0-34.0); MCHC 34.9 g/dL (28.0-37.0); RBC 3.42 mil/uL (4.20-5.00); RDW 13.6 % (10.5-14.5); WBC 3.2 thou/uL (4.0-11.0)
[2021-05-17 05:10] LABS: ALBUMIN 2.9 g/dL (3.4-5.0); CALCIUM 7.7 mg/dL (8.5-10.1); CREATININE 0.5 mg/dL (0.6-1.0); PHOSPHORUS 3.6 mg/dL (2.5-4.9); POTASSIUM 3.3 mmol/L (3.5-5.1)
[2021-05-17 07:09] VITALS: BP 145/79
[2021-05-17] MEDS ORDERED: CLOPIDOGREL75 MG PO (10:08)
[2021-05-17 10:16] VITALS: BP 145/79
--- NOTE | 2021-05-17 11:41 | NUR ---
DISCHARGE NOTE: SW reviewed chart and spoke with nursing and attending physician. Pt in Enhanced Isolation due to COVID. Pt is afebrile and on room air. Pt had cardiac cath yesterday and is medically stable for discharge home today. No discharge needs identified. Pt's family provided transportation home. No SW needs. SW is available to assist should needs arise.
--- NOTE | 2021-05-17 12:20 | CATHLAB ---
[facility] [place] [address] INVASIVE PROCEDURE REPORT Name: ANGEL LUIS BRADLEY Room #: 359-P DIS IN M.R.#: [id number] Admission: 05/15/21 Attend Phys: Atul Walker MD Discharge: 05/17/21 Date of : 66 Report #: [id number] THIS REPORT FOR: cc: Nicolas Guerra Gregory DO Mancuso, Gerald M. MD [facility] ~ APPROVED REPORT Study performed: 05/16/2021 16:24:42 Patient Details Patient Status: In-Patient Room #: The patient is a 51 year-old female Event Personnel Teo Cordova Commercial Sales Consultant, , Ld Rodriguez RN RN, Rodrigo Child Paschal, Ja'net RTR Monitor Procedures Performed Art Access - R femoral artery* Left Heart Cath w/or w/o Coronaries [id number] [facility] [id number] Initial Mod Sed Same Phys/QHP Gr5y [id number] Indication Chest pain Procedure Narrative The patient was brought electively to the Cardiac Catheterization Laboratory and was prepped and draped in a sterile manner. The was infiltrated with 1% Lidocaine subcutaneous anesthesia. A PINNACLE 6FR Sheath #[id number] sheath was inserted into the RFA^. Coronary angiography was performed using coronary diagnostic catheters. The right coronary system was accessed and visualized with a JR4 catheter. The left coronary system was accessed and visualized with a JL4 catheter. The left ventricle was accessed and visualized with a PIGTAIL catheter. Left ventricular/Aortic Valve gradient assessed via catheter pullback. Left ventriculogram was performed in 30 degree projection. Closure device was deployed with a Fr [id number] 6/7F [id number]. The patient tolerated the procedure well and there were no complications associated with the procedure. There was no hematoma. This was a combo case with Dr. Pelletier he used 102ml of visipaque, 10.04mins of fluoro, mGY was 1223, and mGycm2 was 49905.32 [facility] [address] [place] [address] INVASIVE PROCEDURE REPORT Name: ANGEL LUIS BRADLEY Room #: 359-P [facility] IN ..#: [id number] Admission: 05/15/21 Attend Phys: Atul Walker MD Discharge: 05/17/21 Date of : 66 Report #: [id number] Intraoperative Conscious Sedation Sedation start time: 15:32 Case end Time: 16:58 Fentanyl 175 mcg Versed 2 mg Fluoro Time: 1.29 minutes Dose: DAP 1228.80 cGycm2 1223 mGy Contrast Type and Amount: Omnipaque 70 ml Hemodynamics The aortic pressure is 151/82 mmHg with a mean of 90 mmHg. The left ventricular pressure is 150/8 mmHg with a mean of mmHg. The left ventricular end diastolic pressure is 26 mmHg. Pullback from the left ventricle to the aorta revealed no gradient across the aortic valve. PCI Technique Lesion Percutaneous coronary intervention was performed on the Unspecified. Conclusion #1 Normal left ventricular size and systolic function EF 65%. #2 there is normal coronary anatomy selectively injected left and right systems. It is right dominant there is no occlusive disease. Impression: Normal left ventriculography and coronary anatomy. Continue aggressive risk factor modification. <ELECTRONICALLY SIGNED> By: Teo Cordova MD, FACC 05/17/21 1220 122 19 Teo Cordova MD, FACC /INF
== END 2021-05-17 10:53 | disposition home or self-care (01) | DRG 356 ==
LOC: ER 11:57 → EROBS 13:40 → 3W 13:40
PROVIDERS: Emergency Medicine; Hospitalist; Nurse Practitioner; ADMIT Internal Medicine; ATTEND Internal Medicine
PROC: 047 Lower Arteries, Dilation (ICD-10-PCS; principal; 2021-05-16)
PROC: B4141ZZ Fluoroscopy of Superior Mesenteric Artery using Low Osmolar Contrast (ICD-10-PCS; principal; 2021-05-16)
PROC: 4A023N7 Measurement of Cardiac Sampling and Pressure, Left Heart, Percutaneous Approach (ICD-10-PCS; principal; 2021-05-16)
PROC: B41D1ZZ Fluoroscopy of Aorta and Bilateral Lower Extremity Arteries using Low Osmolar Contrast (ICD-10-PCS; principal; 2021-05-16)
PROC: B2111ZZ Fluoroscopy of Multiple Coronary Arteries using Low Osmolar Contrast (ICD-10-PCS; principal; 2021-05-16)
PROC: B2151ZZ Fluoroscopy of Left Heart using Low Osmolar Contrast (ICD-10-PCS; principal; 2021-05-16)
PROC: B4181ZZ Fluoroscopy of Bilateral Renal Arteries using Low Osmolar Contrast (ICD-10-PCS; principal; 2021-05-16)
PROC: B4151ZZ Fluoroscopy of Inferior Mesenteric Artery using Low Osmolar Contrast (ICD-10-PCS; principal; 2021-05-16)
DX: K55.059 Acute (reversible) ischemia of intestine, part and extent unspecified (principal); U07.1 COVID-19; E87.1 Hypo-osmolality and hyponatremia; E78.5 Hyperlipidemia, unspecified; K55.1 Chronic vascular disorders of intestine; E78.01 Familial hypercholesterolemia; E04.1 Nontoxic single thyroid nodule; I70.1 Atherosclerosis of renal artery; E87.6 Hypokalemia; Z90.49 Acquired absence of other specified parts of digestive tract; Z90.710 Acquired absence of both cervix and uterus; Z88.6 Allergy status to analgesic agent; Z88.2 Allergy status to sulfonamides; Z87.891 Personal history of nicotine dependence; Z82.49 Family history of ischemic heart disease and other diseases of the circulatory system; Z79.82 Long term (current) use of aspirin; Z79.899 Other long term (current) drug therapy
CPT/HCPCS: 10879

== ENCOUNTER → 2021-05-18 | Outpatient (CLI) | payer BC, OTHER ==
[~2021-05-18] MED LIST changes: +BENICAR40 MG PO; +CLOPIDOGREL75 MG PO
== END ==
LOC: SJCVCIMAG 13:44
PROVIDERS: ATTEND Internal Medicine Cardiovascular Disease
DX: R19.09 Other intra-abdominal and pelvic swelling, mass and lump (principal); R10.31 Right lower quadrant pain